=== PATIENT | male | born 1975 | race Caucasian/White ===

== ENCOUNTER 2017-02-24 01:03 | Emergency (ER) | payer OTHER, BC ==
[2017-02-24 01:16] VITALS: BP 122/69; PULSE 80; TEMP 98.4; BMI 33.0
--- NOTE | 2017-02-24 01:37 | PDOC ---
[id number] FELL Time Seen by Provider: 02/24/17 01:28 History Source: Patient - History of Present Illness Initial Comments: 02/24/17 01:33 41 year old male [employer] employee c/o left knee pain s/p fall backwards after chair broke. able to weight bear, walks with a limb. pmhx PTSD, abnormal LFTs. Past History - Past Medical History Allergies/Adverse Reactions: Allergies Allergy/AdvReac Type Severity Reaction Status Date / Time Penicillins Allergy Verified 02/24/17 01:10 Other medical history: denies - Psycho/Social/Smoking Cessation Hx Suicidal Ideation: No Smoking History: Never smoked Review of Systems - Review of Systems Able to Perform ROS?: Yes Is the patient limited Kyr[place]z proficient: No Constitutional: No: Symptoms Reported, See HPI, Chills, Diaphoresis, Fever, Loss of Appetite, Malaise, Night Sweats, Weakness, Weight Stable, Unintentional Wgt. Loss, Unexplained wgt Loss, Other Musculoskeletal: Yes: Other (knee pain) *Physical Exam - Vital Signs Last Vital Signs Temp Pulse Resp BP Pulse Ox 98.4 F 80 18 122/69 99 02/24/17 01:07 02/24/17 01:07 02/24/17 01:07 02/24/17 01:07 02/24/17 01:07 - Physical Exam General Appearance: Yes: Appropriately Dressed Respiratory/Chest: positive: Lungs Clear, Normal Breath Sounds Extremity: positive: Normal Capillary Refill, Normal Inspection, Normal Range of Motion, Other (left knee tender to touch. ROM) Integumentary: positive: Normal Color, Dry, Warm Neurologic: positive: Fully Oriented, Alert, Normal Mood/Affect ED Treatment Course - RADIOLOGY Radiograph Interpretation: 02/24/17 02:17 negative knee xray 02/24/17 02:56 Medical Decision Making - Medical Decision Making A knee pain p: xray pain control *DC/Admit/Observation/Transfer Diagnosis at time of Disposition: Left knee injury Qualifiers: Encounter type: initial encounter Qualified Code(s): S89.92XA - Unspecified injury of left lower leg, initial encounter - Discharge Dispostion Disposition: HOME - Referrals Referrals: Brett Lizarraga MD [Staff Physician] - - Patient Instructions Printed Discharge Instructions: DI for Knee Pain Additional Instructions: apply knee brace as tolerated. if pain persist please follow up with orthopedic md. take tylenol 500 every 6 hours or ibuprofen 400 mg 6 hours every 6 hours for pain. - Post Discharge Activity Work/School Note: Back to Work
--- NOTE | 2017-02-24 01:57 | PDOC ---
*Physical Exam - Vital Signs Last Vital Signs Temp Pulse Resp BP Pulse Ox 98.4 F 80 18 122/69 99 02/24/17 01:07 02/24/17 01:07 02/24/17 01:07 02/24/17 01:07 02/24/17 01:07 Medical Decision Making - Medical Decision Making 02/24/17 01:57 agree with care from [facility] *DC/Admit/Observation/Transfer Diagnosis at time of Disposition: Left knee injury - Discharge Dispostion Disposition: HOME - Referrals Referrals: Brett Lizarraga MD [Staff Physician] - - Patient Instructions Printed Discharge Instructions: DI for Knee Pain Additional Instructions: apply knee brace as tolerated. if pain persist please follow up with orthopedic md. take tylenol 500 every 6 hours or ibuprofen 400 mg 6 hours every 6 hours for pain. - Post Discharge Activity Work/School Note: Back to Work
== END 2017-02-24 03:18 | disposition home or self-care (01) ==
LOC: JER 01:03
DX: S89.82XA Other specified injuries of left lower leg, initial encounter (principal); W07.XXXA Fall from chair, initial encounter; Y93.89 Activity, other specified; Y92.238 Other place in hospital as the place of occurrence of the external cause; Y99.0 Civilian activity done for income or pay
CPT/HCPCS: 73562-TC-LT; 99281-25